=== PATIENT | female | born 2000 | race Two or more races ===

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

== ENCOUNTER 2023-05-12 08:23 | Emergency (ER) | payer MEDICAID ==
[~2023-05-12] VITALS: Ht 165.1 cm; Wt 87.3 kg
[2023-05-12 08:36] VITALS: BP 127/84; PULSE 129; RESP 20; O2SAT 98
== END 2023-05-12 09:16 | disposition left against medical advice (07) ==
LOC: ER 08:23
DX: K59.00 Constipation, unspecified (principal); Z53.21 Procedure and treatment not carried out due to patient leaving prior to being seen by health care provider

== ENCOUNTER 2024-02-03 07:12 | Emergency (ER) | payer MEDICAID ==
[~2024-02-03] VITALS: Ht 165.1 cm; Wt 97.3 kg
[2024-02-03 07:58] VITALS: BP 139/78; PULSE 85; RESP 17; TEMP 97.1; O2SAT 100
[2024-02-03] MEDS ORDERED: LACT10SO3 PO (08:19)
[2024-02-03] MEDS ORDERED: DICY10CA PO (08:19)
[2024-02-03] MEDS: LACTULOSE 20Gm/30ML SOLN PO ONE (08:35)
== END 2024-02-03 08:40 | disposition home or self-care (01) ==
LOC: ER 07:12
DX: K59.00 Constipation, unspecified (principal); Z79.899 Other long term (current) drug therapy
CPT/HCPCS: 74018; 81002

== ENCOUNTER 2024-11-28 13:07 | Observation (INO) | payer MEDICAID ==
[~2024-11-28] VITALS: Ht 165.1 cm; Wt 110.5 kg
[~2024-11-28 13:07] MED LIST: DICY10CA PO; LACT10SO3 PO
[2024-11-28 13:09] VITALS: PULSE 134; RESP 17; O2SAT 97
[2024-11-28 13:17] VITALS: TEMP 99; O2SAT 97
--- NOTE | 2024-11-28 13:21 | ED.PDOC ---
GI ASSESSMENT HPI Comments 24 F, presents to the ED for CC of abdominal pain. Patient states, she has been experiencing diffuse abdominal pain onset, this morning (11/28/24). Patient reports, that she is currently [id number] ; expected delivery date (01/04/25). Patient denies abdominal cramping, vaginal discharge, vaginal bleeding, nausea, or vomiting. No others symptoms or modifying factors present at this time. Time Seen by MD: 13:10 Primary Care Provider: JUDY Charles Notes: Nurses Notes, Medications, Allergies Allergies: Coded Allergies: NO KNOWN ALLERGIES (Unverified , 03/10/17) Home Meds Active Scripts Dicyclomine Hcl (BENTYL CAPSULE) 10 Mg Cp, 20 MG PO BID, #24 CAP Prov:GUILHERME NAYAK 02/03/24 Lactulose (Lactulose) 10 Gm/15 Ml Anne, 30 ML PO BID, #280 ML Prov:GUILHERME NAYAK 02/03/24 Information Source: Patient Mode of Arrival: Ambulatory Timing: Hours Duration: Since onset Prehospital treatment: None Quality: None Vomitus: None Stool: Normal Severity: Moderate Recent: None Recent Hx of: None Pain Location: Diffuse Modifying Factors: Nothing Associated sign and symptoms: None Past Medical History PAST MEDICAL HISTORY: Denies Surgical History: Denies all surgeries PAINT TRIMMER PIPE BOWLS History: No Pertinent PAINT TRIMMER PIPE BOWLS History Family History Family History: Reviewed,noncontributory to illness, No family hx of HTN Social History Smoker: Non-Smoker Alcohol: Denies ETOH Use Drugs: Denies Drug Use Lives In: Home Constitutional: denies: chills, diaphoresis, fatigue, fever, malaise, sweats, weakness, others EENTM: denies: blurred vision, double vision, ear bleeding, ear discharge, ear drainage, ear pain, ear ringing, eye pain, eye redness, hearing loss, mouth pain, mouth swelling, nasal discharge, nose bleeding, nose congestion, nose pain, photophobia, tearing, throat pain, throat swelling, voice changes, others Respiratory: denies: cough, hemoptysis, orthopnea, SOB at rest, shortness of breath, SOB with excertion, stridor, wheezing, others Cardiovascular: denies: chest pain, dizzy spells, diaphoresis, Dyspnea on exertion, edema, irregular heart beat, left arm pain, lightheadedness, palpitations, PND, syncope, others Gastrointestinal: reports: abdominal pain; denies: abdomen distended, blood streaked bowels, constipated, diarrhea, dysphagia, difficulty swallowing, hematemesis, melena, nausea, poor appetite, poor fluid intake, rectal bleeding, rectal pain, vomiting, others Genitourinary: reports: ; denies: abnormal vagina bleeding, burning, dyspareunia, dysuria, flank pain, frequency, hematuria, incontinence, pain, vagina discharge, urgency, others Neurological: denies: dizziness, fainting, headache, left sided numbness, left sided weakness, numbness, paresthesia, pre-existing deficit, right sided numbness, right sided weakness, seizure, speech problems, tingling, tremors, weakness, others Musculoskeletal: denies: back pain, gout, joint pain, joint swelling, muscle pain, muscle stiffness, neck pain, others Integumetry: denies: bruises, change in color, change in hair/nails, dryness, laceration, lesions, lumps, rash, wounds, others Allergic/Immunocompromised: denies: Difficulty Healing, Frequent Infections, H lisa, Itching, others Hematologic/Lymphatic: denies: anemia, blood clots, easy bleeding, easy bruising, swollen glands, others Endocrine: denies: excessive hunger, excessive sweating, excessive thirst, excessive urination, flushing, intolerance to cold, intolerance to heat, unexplained weight gain, unexplained weight loss, others Psychiatric: denies: anxiety, bipolar disorder, depression, hopeless, panic disorder, schizophrenia, sleepless, suicidal, others All Other Systems: Reviewed and Negative Physical Exam General Appearance: Mild Distress HEENT: Normal ENT Inspection, Pharynx Normal, TMs Normal Neck: Full Range of Motion, Non-Tender, Normal, Normal Inspection Respiratory: Chest Non-Tender, Lungs Clear, No Accessory Muscle Use, No Respiratory Distress, Normal Breath Sounds Cardiovascular: No Edema, No JVD, No Murmur, No Gallop, Normal Peripheral Pulses, Regular Rate/Rhythm Breast Exam: Deferred Gastrointestinal: Non Tender, No Pulsatile Mass, Normal Bowel Sounds, Other (Gravid uterus) Genitalia: Deferred Pelvic: Deferred Rectal: Deferred Extremities: No calf tenderness, Normal capillary refill, Normal inspection, Normal range of motion, Non-tender, No pedal edema Musculoskeletal : Apperance: Normal Neurologic: Alert, packer operator automatic II-XII nml as Tested, No Motor Deficits, Normal Affect, Normal Mood, No Sensory Deficits Cerebellar Function: Normal Reflexes: Normal Skin: Dry, Normal Color, Warm Lymphatic: No Adenopathy Was a procedure done? Was a procedure done?: No GI differential Dx Differential Diagnosis: Gastritis/PUD, Gastroenteritis, Electrolyte Imbalance, Food Poisoning, , Bacterial, Viral X-Ray, Labs, Meds, VS The patient is being sent to labor and delivery with a diagnosis of abdominal pain in The patient is being sent over to labor and delivery because she is greater than 20 weeks Time of 1ST Reevaluation: 13:40 Reevaluation 1ST: Unchanged Patient Education/Counseling: Diagnosis, Treatment, Prognosis, Need For Follow Up Family Education/Counseling: No Family Present Departure 1 Departure Time of Disposition: 13:24 Impression: Primary Impression: Abdominal pain in Qualified Codes: O26.893 - Other specified related conditions, third trimester; R10.9 - Unspecified abdominal pain Disposition: 01 HOME / SELF CARE / HOMELESS Condition: Fair Discharged With: Self Critical Care Note Critical Care Time?: No Stability Stability form required: No Heart Score Heart Score: Heart Score Response (Comments) Value History N/A 0 EKG N/A 0 Age N/A 0 Risk Factors N/A 0 Troponin N/A 0 Total 0 I personally scribed for CARINA NEIL MD ([email or web address]) on 11/28/24 at 13:21. Electronically submitted by Patricia David ([email or web address]). CARINA NEIL MD November 28, 2024 13:21
[2024-11-28] MEDS ORDERED: LACTATED RINGER'S 1,000 ML IV ONE (14:00)
[2024-11-28] MEDS: NALBUPHINE HCL 10 MG/1ml INJECTION IV PRN (14:10)
[2024-11-28] MEDS: ONDANSETRON HCL 4 MG/2 ML VIAL IV ONE (14:10)
[2024-11-28 15:10] VITALS: BP 136/70; PULSE 85; RESP 16
--- NOTE | 2024-11-28 16:19 | DVH ---
INDICATION: Abdominal pain TECHNIQUE: Multiple real-time sonographic images of the abdomen were obtained. COMPARISON: None FINDINGS: The liver is heterogeneous changes suggesting steatosis. The liver measures 20.2 cm. No in trahepatic biliary ductal dilatation is noted. The gallbladder wall measures 0.18 cm and is unremarkable. No gallstones or sludge is seen. The co mmon duct measures 0.27 cm and is unremarkable. No pericholecystic fluid is noted. The right kidney measures 0.2 cm. Mild hydronephrosis. The left kidney measures 10.9 cm. No hydrone phrosis. The spleen measures 12.7 cm, within normal limits. The echogenicity is within normal limits. The pancreas is not well visualized due to obscuration from bowel gas. The visualized portions of the IVC and aorta are grossly unremarkable. Aorta measures 1.5 cm proximal ly IMPRESSION: 1. Hepatomegaly (20.2 cm) with steatosis. 2. Gallbladder appears normal 3. Right kidney measures 10.2 cm in length with mild hydronephrosis. Left kidney measures 10.9 cm no hydronephrosis.
--- NOTE | 2024-11-28 16:47 | DVH ---
LIMITED SURVEY CLINICAL HISTORY: Abdominal pain COMPARISON: None TECHNIQUE: Grayscale imaging of the transvaginal pelvis is performed FINDINGS: There is a single living intrauterine gestation, with a gestation age of 30 weeks 3 days by today's [facility]. SHAE is 02/03/2024 presentation is cephalic. heart rate is 141. No anoma lies are seen. measurements (cm): BPD , HC , AC , FL . Estimated weight: Not provided Placenta is fundal, with no evidence for previa. The amniotic fluid volume is subjectively normal. A mniotic fluid index is 11.5. Cervical length is 3.20 cm. IMPRESSION: 1. Appropriate interval growth.
--- NOTE | 2024-11-29 05:14 | DVHDS2 ---
Physician Discharge Progress N Final Diagnosis: ABD PAIN 30WKS Operations or Procedures: Operations or Procedures NST REACTIVE REVIWED,SONO Condition on Discharge: Good Disposition: Home Discharge Instructions: Diet: Consistent carbohydrate Activity: Light activity Medications: NA Follow Up Care: Specialist: FU WITH OB TODAY Discharge Statement: "Patient was advised to return to the ER or call 911 if any headaches, dizziness, shortness of breath, chest pain, abdominal pain, bleeding, fevers, or worsening of medical condition. Patient was counseled about treatment plan, medications, possible side effects, patientverbalized understanding. All questions were answered to the best of my ability. This discharge took greater then 30 minutes in planning, reviewing documentation, counseling the patient, and discussing with other team members." Visit Coding OBGYN Date of Service: November 28, 2024 Billing Provider: LIU WALKER DO PRESCHOOL DISABILITY TEACHER Common Visit Codes: 56891-DRVHLJC INP/OBS CARE (HIGH) PRESCHOOL DISABILITY TEACHER Procedure Codes: 77002-72- NON-STRESS TEST LIU WALKER DO November 29, 2024 05:14
== END 2024-11-28 17:17 | disposition home or self-care (01) ==
LOC: ER 13:15 → LDRP 13:20
PROVIDERS: ADMIT Obstetrics & Gynecology; ATTEND Obstetrics & Gynecology
DX: O26.892 Other specified pregnancy related conditions, second trimester (principal); R10.84 Generalized abdominal pain; Z3A.30 30 weeks gestation of pregnancy; Z79.899 Other long term (current) drug therapy
CPT/HCPCS: 59025; 76700; 76815; 76817; 81002; 94760; 96361; 96374; 96375; 99284; G0378; J2300; J2405; 96360

== ENCOUNTER 2024-12-24 16:07 | Observation (INO) | payer MEDICAID ==
[2024-12-24 17:17] LABS: Basophils # (auto) 0.1 10 ^3/uL (0-0.2); Basophils % (auto) 0.9 % (0.0-2.0); Eosinophils # (auto) 0.2 10 ^3/uL (0-0.8); Eosinophils % (auto) 2.3 % (0.0-7.0); Hematocrit 39.8 % (36.0-46.0); Hemoglobin 13.5 g/dL (12.2-16.2); Lymphocytes # (auto) 1.7 10 ^3/uL (0.4-5.4); Lymphocytes % (auto) 19.2 % (10.0-50.0); Mean Corpuscular Hemoglobin 29.7 pg (28.0-32.0); Mean Corpuscular Volume 87.3 fL (80.0-100.0); Monocytes # (auto) 0.8 10 ^3/uL (0-1.3); Monocytes % (auto) 8.8 % (0.0-12.0); Neutrophils % (auto) 68.8 % (37.0-80.0); Nucleated Red Blood Cells % 0.1 %; Platelet Count (auto) 314 10^3/uL (140-450); Red Blood Cells 4.56 10^6/uL (4.0-5.20); Red Cell Distribution Width 13.7 % (11.8-14.3); White Blood Cell 8.8 10^3/uL (4.4-10.8)
[2024-12-24 17:30] LABS: Protein, Urine 29.2 mg/dL (1-14)
[2024-12-24 17:33] LABS: INR 0.97 (0.9-1.15); Partial Thromboplastin Time 28.4 SEC (24.5-34.5); Prothrombin Time 10.3 sec (9.3-11.8)
[2024-12-24 17:35] LABS: Alanine Aminotransferase 13 U/L (7-40); Albumin 3.5 g/dL (3.2-4.8); Anion Gap 11 (5-15); Aspartate Aminotransferase 16 U/L (13-40); BUN/Creatinine Ratio 8.3 (10.0-20.0); Calcium 9.7 mg/dL (8.7-10.4); Carbon Dioxide 21 mmol/L (20-31); Potassium 3.9 mmol/L (3.5-5.1); Sodium 141 mmol/L (136-145); Total Protein 5.9 g/dL (5.7-8.2)
[2024-12-24 17:40] LABS: Alkaline Phosphatase 123 U/L (46-116); Bilirubin, Total 0.3 mg/dL (0.2-1.0); Blood Urea Nitrogen 6 mg/dL (9-23); Chloride 109 mmol/L (98-107); Glucose 175 mg/dL (74-106)
[2024-12-24 17:41] LABS: Urine Protein/Creatinine Ratio 0.12
[2024-12-24 17:45] LABS: Creatinine, Urine 238.08 mg/dL (30.0-125.0)
[2024-12-24 17:49] LABS: Uric Acid 4.9 mg/dL (3.1-7.8)
--- NOTE | 2024-12-24 23:37 | DVHDS2 ---
Discharge Summary Date of Admission Dec 24, 2024 at 16:07 Date of Discharge: Dec 24, 2024 Admitting Diagnosis Thirty-four week generally swelling rule out [facility] Labs/Diagnostic Data: Laboratory Results Test 12/24/24 17:07 12/24/24 16:51 12/24/24 16:46 White Blood Count 8.8 10^3/uL (4.4-10.8) Red Blood Count 4.56 10^6/uL (4.0-5.20) Hemoglobin 13.5 g/dL (12.2-16.2) Hematocrit 39.8 % (36.0-46.0) Mean Corpuscular Volume 87.3 fL (80.0-100.0) Mean Corpuscular Hemoglobin 29.7 pg (28.0-32.0) Mean Corpuscular Hemoglobin Concent 34.0 g/dL (32.0-36.0) Red Cell Distribution Width 13.7 % (11.8-14.3) Platelet Count 314 10^3/uL (140-450) Mean Platelet Volume 8.3 fL (6.9-10.8) Neutrophils (%) (Auto) 68.8 % (37.0-80.0) Lymphocytes (%) (Auto) 19.2 % (10.0-50.0) Monocytes (%) (Auto) 8.8 % (0.0-12.0) Eosinophils (%) (Auto) 2.3 % (0.0-7.0) Basophils (%) (Auto) 0.9 % (0.0-2.0) Neutrophils # (Auto) 6.0 10 ^3/uL (1.6-8.6) Lymphocytes # (Auto) 1.7 10 ^3/uL (0.4-5.4) Monocytes # (Auto) 0.8 10 ^3/uL (0-1.3) Eosinophils # (Auto) 0.2 10 ^3/uL (0-0.8) Basophils # (Auto) 0.1 10 ^3/uL (0-0.2) Nucleated Red Blood Cells 0.1 % Prothrombin Time 10.3 sec (9.3-11.8) Prothrombin Time INR 0.97 (0.9-1.15) Activated Partial Thromboplast Time 28.4 SEC (24.5-34.5) Sodium Level 141 mmol/L (136-145) Potassium Level 3.9 mmol/L (3.5-5.1) Chloride Level 109 mmol/L (98-107) Carbon Dioxide Level 21 mmol/L (20-31) Anion Gap 11 (5-15) Blood Urea Nitrogen 6 mg/dL (9-23) Creatinine 0.72 mg/dL (0.550-1.02) Glomerular Filtration Rate Calc 120 mL/min (>90) BUN/Creatinine Ratio 8.3 (10.0-20.0) Serum Glucose 175 mg/dL (74-106) Uric Acid 4.9 mg/dL (3.1-7.8) Calcium Level 9.7 mg/dL (8.7-10.4) Total Bilirubin 0.3 mg/dL (0.2-1.0) Aspartate Amino Transferase (AST) 16 U/L (13-40) Alanine Aminotransferase (ALT) 13 U/L (7-40) Alkaline Phosphatase 123 U/L (46-116) Total Protein 5.9 g/dL (5.7-8.2) Albumin 3.5 g/dL (3.2-4.8) Urine Creatinine 238.08 mg/dL (30.0-125.0) Urine Protein/Creatinine Ratio 0.12 Urine Total Protein 29.2 mg/dL (1-14) POC Glucose 200 mg/dl (70-106) Other Laboratory Tests 12/24/24 17:07 Brief Hx & Hospital Course: NST performed ratio would pressures ratio Condition at Discharge: Good Final Diagnosis/Problems List 34 week generalized swelling no PiH Discharge Disposition: Home Discharge Instruct/Medications Diet: Consistent carbohydrate Activity: Light activity Activity comment: Kick counts labor precautions To counseling precaution PIH per precautions Follow Up/Referral: As scheduled Discharge Statement: "Patient was advised to return to the ER or call 911 if any headaches, dizziness, shortness of breath, chest pain, abdominal pain, bleeding, fevers, or worsening of medical condition. Patient was counseled about treatment plan, medications, possible side effects, patientverbalized understanding. All questions were answered to the best of my ability. This discharge took greater then 30 minutes in planning, reviewing documentation, counseling the patient, and discussing with other team members." ASSESSMENT ASSESSMENT Assessment Visit Coding OBGYN Date of Service: Dec 24, 2024 Billing Provider: DEVIKA REMY DO FIELD CONTACT PERSON Common Visit Codes: 53210-IBM/OBS SAME DATE (LOW), 40162-BPB/OBS SAME DATE (MOD), 99563-AOB/OBS SAME DATE (HIGH) FIELD CONTACT PERSON Procedure Codes: 95396-37- NON-STRESS TEST DEVIKA REMY DO Dec 24, 2024 23:37
== END 2024-12-24 18:08 | disposition home or self-care (01) ==
LOC: LDRP 16:07 → UNDOADMOB 16:07 → LDRP 16:16 → UNDODISOB 18:08
PROVIDERS: ADMIT Obstetrics & Gynecology; ATTEND Obstetrics & Gynecology
DX: O26.893 Other specified pregnancy related conditions, third trimester (principal); M79.89 Other specified soft tissue disorders; Z3A.34 34 weeks gestation of pregnancy; Z79.899 Other long term (current) drug therapy
CPT/HCPCS: 36415; 59025; 80053; 81002; 82570; 82948; 82962; 84156; 84550; 85025; 85610; 85730; 94760; G0378

== ENCOUNTER 2025-02-23 03:40 | Emergency (ER) | payer MEDICAID ==
[~2025-02-23] VITALS: Ht 165.1 cm; Wt 103.9 kg
[2025-02-23 04:33] LABS: Hematocrit 38.9 % (36.0-46.0); Hemoglobin 13.1 g/dL (12.2-16.2); Mean Corpuscular Hemoglobin 29.1 pg (28.0-32.0); Mean Corpuscular Volume 86.0 fL (80.0-100.0); Nucleated Red Blood Cells % 0.1 %
[2025-02-23 04:53] LABS: Albumin 4.7 g/dL (3.2-4.8); Alkaline Phosphatase 100 U/L (46-116); Anion Gap 12 (5-15); BUN/Creatinine Ratio 20.2 (10.0-20.0); Blood Urea Nitrogen 19 mg/dL (9-23); Calcium 10.0 mg/dL (8.7-10.4); Carbon Dioxide 25 mmol/L (20-31); Chloride 103 mmol/L (98-107); Lipase 52 U/L (12-53); Potassium 4.3 mmol/L (3.5-5.1); Sodium 140 mmol/L (136-145); Total Protein 7.1 g/dL (5.7-8.2)
[2025-02-23 04:54] LABS: Bilirubin, Total 0.4 mg/dL (0.2-1.0)
[2025-02-23] MEDS: ONDANSETRON HCL 4 MG/2 ML VIAL IV ONE (04:57)
[2025-02-23] MEDS: MORPHINE SULFATE 4 MG/ML SYR/VIAL IV ONE (04:57)
[2025-02-23 04:59] LABS: Alanine Aminotransferase 65 U/L (7-40); Glucose 106 mg/dL (74-106)
[2025-02-23 05:03] VITALS: PULSE 75; RESP 18; O2SAT 98
--- NOTE | 2025-02-23 05:12 | ED.PDOC ---
GI ASSESSMENT HPI Comments 24-year-old female with a history of preeclampsia and induced vaginal delivery on 01/05/2025 brought in by family complaining of right upper quadrant abdominal pain x1 day. Patient describes pain is sharp, constant, radiating to the back, no particular exacerbating or alleviating factors. She denies any associated nausea, vomiting, diarrhea, constipation, dysuria or fever. Chief Complaint: Abdominal Pain Time Seen by MD: 05:11 Primary Care Provider: UNKNOWN Reviewed Notes: Nurses Notes Allergies: Coded Allergies: NO KNOWN ALLERGIES (Unverified , 03/10/17) Home Meds Active Scripts Dicyclomine Hcl (BENTYL CAPSULE) 10 Mg Cp, 20 MG PO BID, #24 CAP Prov:GUILHERME NAYAK 02/03/24 Lactulose (Lactulose) 10 Gm/15 Ml Anne, 30 ML PO BID, #280 ML Prov:GUILHERME NAYAK 02/03/24 Information Source: Patient Mode of Arrival: Ambulatory Timing: Days Duration: Intermittent Past Medical History PAST MEDICAL HISTORY: HTN Past Medical History (Other): Preeclampsia Surgical History: Denies all surgeries EAP CONSULTANT History: Other (Preeclampsia, induced vaginal delivery on 01/05/2025) Family History Family History: Reviewed,noncontributory to illness Social History Smoker: Non-Smoker Alcohol: Denies ETOH Use Drugs: Denies Drug Use Lives In: Home Constitutional: denies: chills, diaphoresis, fatigue, fever, malaise, sweats, weakness, others EENTM: denies: blurred vision, double vision, ear bleeding, ear discharge, ear drainage, ear pain, ear ringing, eye pain, eye redness, hearing loss, mouth pain, mouth swelling, nasal discharge, nose bleeding, nose congestion, nose pain, photophobia, tearing, throat pain, throat swelling, voice changes, others Respiratory: denies: cough, hemoptysis, orthopnea, SOB at rest, shortness of breath, SOB with excertion, stridor, wheezing, others Cardiovascular: denies: chest pain, dizzy spells, diaphoresis, Dyspnea on exertion, edema, irregular heart beat, left arm pain, lightheadedness, palpitations, PND, syncope, others Gastrointestinal: reports: abdominal pain (Right upper quadrant); denies: abdomen distended, blood streaked bowels, constipated, diarrhea, dysphagia, difficulty swallowing, hematemesis, melena, nausea, poor appetite, poor fluid intake, rectal bleeding, rectal pain, vomiting, others Genitourinary: denies: abnormal vagina bleeding, burning, dyspareunia, dysuria, flank pain, frequency, hematuria, incontinence, pain, , vagina discharge, urgency, others Neurological: denies: dizziness, fainting, headache, left sided numbness, left sided weakness, numbness, paresthesia, pre-existing deficit, right sided numbness, right sided weakness, seizure, speech problems, tingling, tremors, weakness, others Musculoskeletal: denies: back pain, gout, joint pain, joint swelling, muscle pain, muscle stiffness, neck pain, others Integumetry: denies: bruises, change in color, change in hair/nails, dryness, laceration, lesions, lumps, rash, wounds, others Allergic/Immunocompromised: denies: Difficulty Healing, Frequent Infections, Hives, Itching, others Hematologic/Lymphatic: denies: anemia, blood clots, easy bleeding, easy bruising, swollen glands, others Endocrine: denies: excessive hunger, excessive sweating, excessive thirst, excessive urination, flushing, intolerance to cold, intolerance to heat, unexplained weight gain, unexplained weight loss, others Psychiatric: denies: anxiety, bipolar disorder, depression, hopeless, panic disorder, schizophrenia, sleepless, suicidal, others All Other Systems: Reviewed and Negative (Comprehensive systems review obtained and negative except for what is stated in the HPI.) Physical Exam General Appearance: No Apparent Distress, Obese HEENT: Other (Pupils and face symmetric. Moist mucous membranes.) Neck: Full Range of Motion, Normal Inspection Respiratory: Lungs Clear, No Accessory Muscle Use, No Respiratory Distress, Normal Breath Sounds Cardiovascular: No Edema, No JVD, Regular Rate/Rhythm Breast Exam: Deferred Gastrointestinal: RUQ, Soft, Tenderness Genitalia: Deferred Pelvic: Deferred Rectal: Deferred Extremities: Normal inspection, Normal range of motion, Non-tender, No pedal edema Neurologic: Alert (Oriented x4), Normal Affect, Normal Mood, Other (Ambulatory) Cerebellar Function: NOT DONE Reflexes: NOT DONE Skin: Dry, Normal Color, Warm Lymphatic: NOT DONE Was a procedure done? Was a procedure done?: No GI differential Dx Differential Diagnosis: Cholecystitis, Constipation, Diverticular disease, Gastritis/PUD, Gastroenteritis, Hernia, Hepatitis, Pancreatitis, UTI, Urolithiasis, Electrolyte Imbalance, Food Poisoning, Bacterial, Viral, Stress Ulcer, Kidney Stone X-Ray, Labs, Meds, VS Vital Signs Date Time Temp Pulse Resp B/P (MAP) Pulse Ox O2 Delivery O2 Flow Rate FiO2 02/23/25 05:03 75 18 98 Room Air* 0 21 02/23/25 05:02 98.6 75 18 139/85 (103) 98 98.6 02/23/25 03:43 98.1 70 18 150/74 96 98.1 Lab Test 02/23/25 05:11 02/23/25 04:26 Range/Units Urine Color Light-yellow Yellow Urine Clarity Turbid H Clear Urine pH 5.5 5.0-9.0 Urine Specific [place] 1.020 1.001-1.035 Urine Protein Negative Negative Urine Ketones Negative Negative Urine Blood Negative Negative /uL Urine Nitrite Negative Negative Urine Bilirubin Negative Negative Urine Urobilinogen Normal Negative mg/dL Urine Leukocyte Esterase 1+ Negative /uL Urine Glucose Normal Normal mg/dL Urine Test Negative Negative White Blood Count 8.3 4.4-10.8 10^3/uL Red Blood Count 4.52 4.0-5.20 10^6/uL Hemoglobin 13.1 12.2-16.2 g/dL Hematocrit 38.9 36.0-46.0 % Mean Corpuscular Volume 86.0 80.0-100.0 fL Mean Corpuscular Hemoglobin 29.1 28.0-32.0 pg Mean Corpuscular Hemoglobin Concent 33.8 32.0-36.0 g/dL Red Cell Distribution Width 12.6 11.8-14.3 % Platelet Count 394 140-450 10^3/uL Mean Platelet Volume 7.5 6.9-10.8 fL Neutrophils (%) (Auto) 57.2 37.0-80.0 % Lymphocytes (%) (Auto) 32.2 10.0-50.0 % Monocytes (%) (Auto) 6.2 0.0-12.0 % Eosinophils (%) (Auto) 3.6 0.0-7.0 % Basophils (%) (Auto) 0.8 0.0-2.0 % Neutrophils # (Auto) 4.8 1.6-8.6 10 ^3/uL Lymphocytes # (Auto) 2.7 0.4-5.4 10 ^3/uL Monocytes # (Auto) 0.5 0-1.3 10 ^3/uL Eosinophils # (Auto) 0.3 0-0.8 10 ^3/uL Basophils # (Auto) 0.1 0-0.2 10 ^3/uL Nucleated Red Blood Cells 0.1 % Sodium Level 140 136-145 mmol/L Potassium Level 4.3 3.5-5.1 mmol/L Chloride Level 103 98-107 mmol/L Carbon Dioxide Level 25 20-31 mmol/L Anion Gap 12 5-15 Blood Urea Nitrogen 19 9-23 mg/dL Creatinine 0.94 0.550-1.02 mg/dL Glomerular Filtration Rate Calc 87 >90 mL/min BUN/Creatinine Ratio 20.2 H 10.0-20.0 Serum Glucose 106 74-106 mg/dL Calcium Level 10.0 8.7-10.4 mg/dL Total Bilirubin 0.4 0.2-1.0 mg/dL Aspartate Amino Transferase (AST) 43 H 13-40 U/L Alanine Aminotransferase (ALT) 65 H 7-40 U/L Alkaline Phosphatase 100 46-116 U/L Total Protein 7.1 5.7-8.2 g/dL Albumin 4.7 3.2-4.8 g/dL Lipase 52 12-53 U/L PROCEDURE(s): ABPL - CT AB PEL WO CON-NO ORAL OR IV REASON: ruq pain ORDER NUMBER(s): [id number], ACCESSION NUMBER(s): [id number] EXAM: CT CT AB PEL WO CON-NO ORAL OR IV HISTORY: ruq pain COMPARISON: US ABDOMEN COMPLETE SONOGRAM on DOS: 11/28/24, XY KUB ABDOMEN SINGLE VIEW on DOS: 02/03/24 TECHNIQUE: Helical CT images of the abdomen and pelvis were performed without IV contrast. Sagittal and coronal reformatted images were obtained. This CT exam wa s performed using one or more of the following dose reduction techniques: Automated exposure control, adjustment of the mA and/or kv according to patient size, or the use of iterative reconstruction techniques. Radiation Dose: Abdomen/Pelvis: CTDIvol 20.01 mGy, DLP 1194.47 mGy*cm. FINDINGS: CT abdomen: The lung bases are clear. The heart is not enlarged. The liver is diffusely fatty density and measures 22 cm longitudinal. The noncontrast spleen, gallbladder, pancreas, kidneys, and adrenal glands are unremarkable. No abdominal aortic aneurysm. There is a small fatty umbilical hernia. CT pelvis: No abnormal bowel dilatation, free air, or free fluid. The appendix and urinary bladder are unremarkable. There is a small fatty left inguinal indirect hernia. There is mild osteoarthritis of the hips. IMPRESSION: 1. Hepatomegaly and hepatic steatosis. 2. No evidence of bowel obstruction, acute appendicitis, or other acute process in the abdomen or pelvis. X-Ray, Labs, Meds, VS Comment 24-year-old female with a history of hypertension, preeclampsia and recent induced vaginal delivery complaining of right upper quadrant pain Vitals remarkable for BP 150/74 Exam remarkable for right upper quadrant tenderness to palpation Rhythm strip independently interpreted by me: Sinus rhythm, rate 70, no ectopy. CT abdomen and pelvis IMPRESSION: 1. Hepatomegaly and hepatic steatosis. 2. No evidence of bowel obstruction, acute appendicitis, or other acute process in the abdomen or pelvis. CBC unremarkable, CMP remarkable for AST 43, ALT 65, lipase normal, urine negative, UA abnormal consistent with UTI Patient treated with the following in the ED: Ibuprofen 600 mg p.o., Rocephin 1 g IV On re-evaluation, patient states pain has improved. Vitals were stable. Patient appears stable for discharge with close outpatient follow-up with her primary physician. Rx Keflex, ibuprofen Time of 1ST Reevaluation: 05:12 Reevaluation 1ST: Unchanged Patient Education/Counseling: Diagnosis, Treatment Family Education/Counseling: No Family Present SEPSIS Sepsis Screen Date sepsis recognized/suspect: Feb 23, 2025 Time Sepsis recognized/suspect: 0345 Recent Procedure: No On Antibiotic Therapy: No Respiratory Rate >20: No Heart Rate >90: No Temp<36 C (96.8 F) or >38.3 C: No SBP <90 or MAP <65 mmHG: No New Acute Mental Status Change: No Is the patient on CPAP, BIPAP,: No Physician Orders Urinalysis (02/23/25 04:12) Ct Ab Pel Wo Con-No Oral Or Iv (02/23/25 04:12) Vital Signs Date Time Temp Pulse Resp B/P (MAP) Pulse Ox O2 Delivery O2 Flow Rate FiO2 02/23/25 05:03 75 18 98 Room Air* 0 21 02/23/25 05:02 98.6 75 18 139/85 (103) 98 98.6 02/23/25 03:43 98.1 70 18 150/74 96 98.1 Laboratory Tests Test 02/23/25 04:26 White Blood Count 8.3 10^3/uL (4.4-10.8) Departure 1 Departure Time of Disposition: 07:00 Impression: Primary Impression: UTI (urinary tract infection) Disposition: HOME / SELF CARE / HOMELESS Condition: Stable Additional Instructions: Your blood tests were unremarkable. Your urine test showed you have a urinary tract infection. Your CT scan showed liver enlargement and fatty liver. These CT findings are not necessarily the cause of your symptoms, and do not require any immediate treatment. I have prescribed antibiotics to treat your urinary tract infection, along with pain medication. Follow-up with your primary doctor in 1-2 days. Return to ER for persistent or worsening symptoms. [place] [id number] Ph: [phone] DIAGNOSTIC IMAGING Diagnostic Imaging Report : [id number] Signed PATIENT: MARSHALL JARVIS ACCT: [id number] UNIT: [id number] : 2000 LOC: ER ROOM / BED: / AGE / SEX: 24 / F ADM STATUS: REG ER SERVICE 0412 ORDERING PHYSICIAN: RICH VALENCIA MD PROCEDURE(s): ABPL - CT AB PEL WO CON-NO ORAL OR IV REASON: ruq pain ORDER NUMBER(s): [id number], ACCESSION NUMBER(s): [id number] EXAM: CT CT AB PEL WO CON-NO ORAL OR IV HISTORY: ruq pain COMPARISON: US ABDOMEN COMPLETE SONOGRAM on DOS: 11/28/24, XY KUB ABDOMEN SINGLE VIEW on DOS: 02/03/24 TECHNIQUE: Helical CT images of the abdomen and pelvis were performed without IV contrast. Sagittal and coronal reformatted images were obtained. This CT exam was performed using one or more of the following dose reduction techniques: Automated exposure control, adjustment of the mA and/or kv according to patient size, or the use of iterative reconstruction techniques. Radiation Dose: Abdomen/Pelvis: CTDIvol 20.01 mGy, DLP 1194.47 mGy*cm. FINDINGS: CT abdomen: The lung bases are clear. The heart is not enlarged. The liver is diffusely fatty density and measures 22 cm longitudinal. The noncontrast spleen, gallbladder, pancreas, kidneys, and adrenal glands are unremarkable. No abdominal aortic aneurysm. There is a small fatty umbilical hernia. CT pelvis: No abnormal bowel dilatation, free air, or free fluid. The appendix and urinary bladder are unremarkable. There is a small fatty left inguinal indirect hernia. There is mild osteoarthritis of the hips. IMPRESSION: 1. Hepatomegaly and hepatic steatosis. 2. No evidence of bowel obstruction, acute appendicitis, or other acute process in the abdomen or pelvis. e-Prescriptions Ibuprofen Micronized (Ibuprofen) 800 Mg Tab 800 MG PO Q8HP PRN, #30 TAB Prn fever or pain. Take with food. Prov: RICH VALENCIA MD 02/23/25 Cephalexin Monohydrate (Cephalexin) 500 Mg Cap 1 CAP PO QID for 10 Days, #40 CAP Prov: RICH VALENCIA MD 02/23/25 Discharged With: Relative Critical Care Note Critical Care Time?: No Stability Stability form required: No Heart Score Heart Score: Heart Score Response (Comments) Value History N/A 0 EKG N/A 0 Age N/A 0 Risk Factors N/A 0 Troponin N/A 0 Total 0 I personally scribed for RICH VLAENCIA MD ([email or web address]) on 02/23/25 at 05:12. Electronically submitted by Chip Osullivan ([email or web address]). RICH VALENCIA MD Feb 23, 2025 05:12
[2025-02-23] MEDS: IBUPROFEN 600 MG TAB PO ONE (05:23)
[2025-02-23 05:33] LABS: Urine Protein, UAD Negative (Negative)
--- NOTE | 2025-02-23 06:40 | DVH ---
EXAM: CT CT AB PEL WO CON-NO ORAL OR IV HISTORY: ruq pain COMPARISON: US ABDOMEN COMPLETE SONOGRAM on DOS: 11/28/24, XY KUB ABDOMEN SINGLE VIEW on DOS: 02/03/24 TECHNIQUE: Helical CT images of the abdomen and pelvis were performed without IV contrast. Sagittal a nd coronal reformatted images were obtained. This CT exam was performed using one or more of the foll owing dose reduction techniques: Automated exposure control, adjustment of the mA and/or kv according to patient size, or the use of iterative reconstruction techniques. Radiation Dose: Abdomen/Pelvis: CTDIvol 20.01 mGy, DLP 1194.47 mGy*cm. FINDINGS: CT abdomen: The lung bases are clear. The heart is not enlarged. The liver is diffusely fatty density and measures 22 cm longitudinal. The noncontrast spleen, gallbladder, pancreas, kidneys, and adrenal glands are unremarkable. No abdominal aortic aneurysm. There is a small fatty umbilical hernia. CT pelvis: No abnormal bowel dilatation, free air, or free fluid. The appendix and urinary bladder ar e unremarkable. There is a small fatty left inguinal indirect hernia. There is mild osteoarthritis of the hips. IMPRESSION: 1. Hepatomegaly and hepatic steatosis. 2. No evidence of bowel obstruction, acute appendicitis, or other acute process in the abdomen or pel vis.
[2025-02-23] MEDS ORDERED: CEPH500C PO (07:45)
[2025-02-23] MEDS ORDERED: IBUP-1455 PO (07:45)
[2025-02-23 08:21] VITALS: BP 142/81; PULSE 64; RESP 18; TEMP 97.8; O2SAT 98
[2025-02-23] MEDS: cefTRIAXone 1GM/50ML D5W 50 ML IV ONE (08:45)
== END 2025-02-23 09:15 | disposition home or self-care (01) ==
LOC: ER 03:40
DX: N39.0 Urinary tract infection, site not specified (principal); I10 Essential (primary) hypertension; Z79.899 Other long term (current) drug therapy
CPT/HCPCS: 36415; 74176; 80053; 81003; 81025; 83690; 85025; 96365; 99285; J0696

== ENCOUNTER 2025-02-26 09:37 | Emergency (ER) | payer MEDICAID ==
[~2025-02-26] VITALS: Ht 165.1 cm; Wt 100.0 kg
[~2025-02-26 09:37] MED LIST changes: +CEPH500C PO; +IBUP-1455 PO
--- NOTE | 2025-02-26 10:13 | ED.PDOC ---
HPI (NEURO) HPI Comments 24 y/o F, BIBA, with PMHx of HTN presents to the ED for CC of dizziness. EMS reports, patient is coming from home where she c/o sudden onset dizziness and lightheadedness this morning (02/26/25). Patient relays, that she was seen at [facility] x2days ago and was told to have a UTI for which she has been taking Abx. Patient further comments, to have associated symptoms of nausea, vomiting, and diarrhea. Patient denies body-aches, chills, blurred vision, headache, weakness, or photophobia. No other symptoms or modifying factors present at this time. Chief Complaint: Dizziness Time Seen by MD: 09:35 Primary Care Provider: UNKNOWN Reviewed Notes: Nurses Notes, Medical Detailist Notes, Medications, Allergies Information Source: Patient, Emergency Med Personnel Mode of Arrival: EMS Severity: Moderate Dizziness/Weakness Severity: Unable to do activities Headache Severity: None Timing: Minutes Duration: Since onset Prehospital treatment: None Onset: At rest Circumstances: Spontaneous Symptoms: Vertigo Before: Normal During: Awake After: Normal Mentation History of: None Modifying factors: Nothing Associated Signs and Symptoms: Nausea, Vomiting, Diarrhea Past Medical History PAST MEDICAL HISTORY: HTN Surgical History: Denies all surgeries 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: Other Family History Family History: Reviewed,noncontributory to illness Social History Smoker: Non-Smoker Alcohol: Denies ETOH Use Drugs: Denies Drug Use Lives In: Home Constitutional: denies: chills, diaphoresis, fatigue, fever, malaise, sweats, weakness, others EENTM: denies: blurred vision, double vision, ear bleeding, ear discharge, ear drainage, ear pain, ear ringing, eye pain, eye redness, hearing loss, mouth pain, mouth swelling, nasal discharge, nose bleeding, nose congestion, nose pain, photophobia, tearing, throat pain, throat swelling, voice changes, others Respiratory: denies: cough, hemoptysis, orthopnea, SOB at rest, shortness of breath, SOB with excertion, stridor, wheezing, others Cardiovascular: denies: chest pain, dizzy spells, diaphoresis, Dyspnea on exertion, edema, irregular heart beat, left arm pain, lightheadedness, palpitations, PND, syncope, others Gastrointestinal: reports: diarrhea, nausea, vomiting; denies: abdomen distended, abdominal pain, blood streaked bowels, constipated, dysphagia, difficulty swallowing, hematemesis, melena, poor appetite, poor fluid intake, rectal bleeding, rectal pain, others Genitourinary: denies: abnormal vagina bleeding, burning, dyspareunia, dysuria, flank pain, frequency, hematuria, incontinence, pain, , vagina d ischarge, urgency, others Neurological: reports: dizziness; denies: fainting, headache, left sided numbness, left sided weakness, numbness, paresthesia, pre-existing deficit, right sided numbness, right sided weakness, seizure, speech problems, tingling, tremors, weakness, others Musculoskeletal: denies: back pain, gout, joint pain, joint swelling, muscle pain, muscle stiffness, neck pain, others Integumetry: denies: bruises, change in color, change in hair/nails, dryness, laceration, lesions, lumps, rash, wounds, others Allergic/Immunocompromised: denies: Difficulty Healing, Frequent Infections, Hives, Itching, others Hematologic/Lymphatic: denies: anemia, blood clots, easy bleeding, easy bruising, swollen glands, others Endocrine: denies: excessive hunger, excessive sweating, excessive thirst, excessive urination, flushing, intolerance to cold, intolerance to heat, unexplained weight gain, unexplained weight loss, others Psychiatric: denies: anxiety, bipolar disorder, depression, hopeless, panic disorder, schizophrenia, sleepless, suicidal, others All Other Systems: Reviewed and Negative Physical Exam General Appearance: Mild Distress, Normal, Other (anxious appearing) HEENT: Normal ENT Inspection, Pharynx Normal Neck: Full Range of Motion, Non-Tender, Normal, Normal Inspection Respiratory: Chest Non-Tender, Lungs Clear, No Accessory Muscle Use, No Respiratory Distress, Normal Breath Sounds Cardiovascular: No Edema, No Murmur, No Gallop, Normal Peripheral Pulses, Regular Rate/Rhythm Breast Exam: Deferred Gastrointestinal: No Organomegaly, Non Tender, No Pulsatile Mass, Normal Bowel Sounds, Soft Genitalia: Deferred Pelvic: Deferred Rectal: Deferred Extremities: No calf tenderness, Normal capillary refill, Normal inspection, Normal range of motion, Non-tender, No pedal edema Musculoskeletal : Apperance: Normal Neurologic: Alert, rotary cutter feeder II-XII nml as Tested, No Motor Deficits, Normal Affect, Normal Mood, No Sensory Deficits Cerebellar Function: Normal Reflexes: Normal Skin: Dry, Normal Color, Warm Lymphatic: No Adenopathy Was a procedure done? Was a procedure done?: No Differential Diagnosis (SZ) General Weakness: Dehydration, Vertigo: central, Vertigo: peripheral X-Ray, Labs, Meds, VS Vital Signs Date Time Temp Pulse Resp B/P (MAP) Pulse Ox O2 Delivery O2 Flow Rate FiO2 02/26/25 09:52 73 02/26/25 09:47 98.0 88 16 142/62 98 98.0 Lab Test 02/26/25 11:48 02/26/25 10:10 Range/Units Urine Color Colorless Yellow Urine Clarity Clear Clear Urine pH 5.5 5.0-9.0 Urine Specific [place] 1.014 1.001-1.035 Urine Protein Negative Negative Urine Ketones Negative Negative Urine Blood Negative Negative /uL Urine Nitrite Negative Negative Urine Bilirubin Negative Negative Urine Urobilinogen Normal Negative mg/dL Urine Leukocyte Esterase Negative Negative /uL Urine RBC 1 0 - 4 /hpf Urine Microscopic WBC < 1 0-5 /HPF Urine Squamous Epithelial Cells Few <5 /hpf Urine Bacteria None seen None Seen /hpf Urine Glucose Normal Normal mg/dL White Blood Count 6.0 # 4.4-10.8 10^3/uL Red Blood Count 4.45 4.0-5.20 10^6/uL Hemoglobin 13.1 12.2-16.2 g/dL Hematocrit 38.3 36.0-46.0 % Mean Corpuscular Volume 86.0 80.0-100.0 fL Mean Corpuscular Hemoglobin 29.4 28.0-32.0 pg Mean Corpuscular Hemoglobin Concent 34.2 32.0-36.0 g/dL Red Cell Distribution Width 12.7 11.8-14.3 % Platelet Count 374 140-450 10^3/uL Mean Platelet Volume 8.0 6.9-10.8 fL Neutrophils (%) (Auto) 63.9 37.0-80.0 % Lymphocytes (%) (Auto) 25.8 10.0-50.0 % Monocytes (%) (Auto) 6.3 0.0-12.0 % Eosinophils (%) (Auto) 3.3 0.0-7.0 % Basophils (%) (Auto) 0.7 0.0-2.0 % Neutrophils # (Auto) 3.8 1.6-8.6 10 ^3/uL Lymphocytes # (Auto) 1.5 0.4-5.4 10 ^3/uL Monocytes # (Auto) 0.4 0-1.3 10 ^3/uL Eosinophils # (Auto) 0.2 0-0.8 10 ^3/uL Basophils # (Auto) 0 0-0.2 10 ^3/uL Nucleated Red Blood Cells 0.1 % Sodium Level 140 136-145 mmol/L Potassium Level 4.6 3.5-5.1 mmol/L Chloride Level 108 H 98-107 mmol/L Carbon Dioxide Level 24 20-31 mmol/L Anion Gap 8 5-15 Blood Urea Nitrogen 11 9-23 mg/dL Creatinine 0.80 0.550-1.02 mg/dL Glomerular Filtration Rate Calc 106 >90 mL/min BUN/Creatinine Ratio 13.8 10.0-20.0 Serum Glucose 124 H 74-106 mg/dL Calcium Level 9.6 8.7-10.4 mg/dL Troponin I High Sensitivity < 3 L </=34 ng/L Time of 1ST Reevaluation: 10:05 Reevaluation 1ST: Unchanged Patient Education/Counseling: Diagnosis, Treatment Family Education/Counseling: No Family Present Departure 1 Departure Time of Disposition: 14:19 (Patient with benign workup. will discharge home. ) Impression: Primary Impression: Dizziness Disposition: 01 HOME / SELF CARE / HOMELESS Condition: Stable Additional Instructions: Your workup today was benign. You can take Tylenol or Motrin as needed for pain. You should follow up with your regular doctor within 1 week. You should stay well rested and well hydrated. If your symptoms worsen or you have any other concerns please return to the emergency room. Discharged With: Self Critical Care Note Critical Care Time?: No Stability Stability form required: No Heart Score Heart Score: Heart Score Response (Comments) Value History N/A 0 EKG N/A 0 Age N/A 0 Risk Factors N/A 0 Troponin N/A 0 Total 0 I personally scribed for DARCI LARSEN MD ([email or web address]) on 02/26/25 at 10:13. Electronically submitted by Patricia David ([email or web address]). DARCI LARSEN MD Feb 26, 2025 10:13
[2025-02-26 10:43] LABS: Hematocrit 38.3 % (36.0-46.0); Hemoglobin 13.1 g/dL (12.2-16.2); Mean Corpuscular Hemoglobin 29.4 pg (28.0-32.0); Mean Corpuscular Volume 86.0 fL (80.0-100.0); Nucleated Red Blood Cells % 0.1 %
[2025-02-26 10:47] LABS: Anion Gap 8 (5-15); Carbon Dioxide 24 mmol/L (20-31); Potassium 4.6 mmol/L (3.5-5.1); Sodium 140 mmol/L (136-145)
[2025-02-26 10:48] LABS: Calcium 9.6 mg/dL (8.7-10.4)
[2025-02-26 10:53] LABS: BUN/Creatinine Ratio 13.8 (10.0-20.0); Blood Urea Nitrogen 11 mg/dL (9-23)
[2025-02-26 10:56] LABS: Chloride 108 mmol/L (98-107); Glucose 124 mg/dL (74-106)
[2025-02-26 13:17] LABS: Urine Protein, UAD Negative (Negative)
[2025-02-26 14:48] VITALS: BP 120/60; PULSE 64; RESP 16; TEMP 98.1; O2SAT 96
--- NOTE | 2025-02-27 19:14 | ECG ---
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
== END 2025-02-26 14:53 | disposition home or self-care (01) ==
LOC: ER 09:37 → EDBD 09:37 → ER 14:53
DX: R42 Dizziness and giddiness (principal); I10 Essential (primary) hypertension
CPT/HCPCS: 36415; 80048; 81001; 84484; 85025; 93005